=== PATIENT | male | born 1990 | race Caucasian/White ===

== ENCOUNTER 2018-02-02 16:35 | Emergency (ER) | payer OTHER ==
[~2018-02-02] VITALS: Ht 180.3 cm; Wt 99.8 kg
[~2018-02-02 16:35] MED LIST: ANTIBIOTIC; BACTRIM DS TAB1 EACH PO
[2018-02-02] MEDS ORDERED: VOLTAREN GEL 1100 G2 TOP (17:33)
[2018-02-02 17:39] VITALS: BP 125/75
--- NOTE | 2018-02-03 13:02 | EKG ---
[place] [address] ELECTROCARDIOGRAM REPORT Name: BRANDYN LOBO Room: [facility]#: [id number] Admission: 02/02/18 Attend Phys: Discharge: 02/02/18 Date of : 86 Report #: [id number] THIS REPORT FOR: //name// [facility] ED Test Date: 2018-02-02 Test Time: 16:42:29 Pat Name: BRANDYN LOBO Department: Room: Gender: M [employer] Machine Operator: EDDIE : 1990 Requested By: Kerline Dietz Order Number: [id number] MD: Eduardo Heredia Measurements Intervals Scott Rate: 68 P: 46 NJ: 142 QRS: 46 QRSD: 86 T: 41 QT: 360 QTc: 383 Interpretive Statements Sinus rhythm RSR' in V1 or V2, right VCD or RVH Baseline wander in lead(s) V3 No previous ECG available for comparison Electronically Signed On 02-03-2018 13:02:11 CDT by Eduardo Heredia [email or web address] <ELECTRONICALLY SIGNED> By: Eduardo Heredia MD, [facility] 02/03/18 130 41 41 Eduardo Heredia MD, [facility] /EPI
== END 2018-02-02 18:00 | disposition home or self-care (01) ==
LOC: M.ERS 16:35
DX: S20.212A Contusion of left front wall of thorax, initial encounter (principal); F41.9 Anxiety disorder, unspecified; J45.909 Unspecified asthma, uncomplicated; Z90.49 Acquired absence of other specified parts of digestive tract; X58.XXXA Exposure to other specified factors, initial encounter; Y93.89 Activity, other specified; Y92.89 Other specified places as the place of occurrence of the external cause; Y99.8 Other external cause status

== ENCOUNTER 2018-06-17 18:06 | Emergency (ER) | payer OTHER ==
[~2018-06-17] VITALS: Ht 180.3 cm; Wt 99.8 kg
[~2018-06-17 18:06] MED LIST changes: +VOLTAREN GEL 1100 G2 TOP
[2018-06-17] MEDS ORDERED: DOXYCYCLINE 10100 MG PO (18:37)
[2018-06-17] MEDS ORDERED: TESSALON PERLE100 M1 PO (18:38)
[2018-06-17] MEDS ORDERED: WELLBUTRIN SR150 MG PO (18:38)
[2018-06-17] MEDS ORDERED: MOBIC15 MG PO (18:39)
[2018-06-17] MEDS ORDERED: PREDNISONE 20 M20 MG PO (19:34)
[2018-06-17 19:47] VITALS: BP 132/78
== END 2018-06-17 19:47 | disposition home or self-care (01) ==
LOC: M.ERS 18:06
DX: R05 Cough (principal); R06.02 Shortness of breath; R42 Dizziness and giddiness; J45.909 Unspecified asthma, uncomplicated; Z90.49 Acquired absence of other specified parts of digestive tract

== ENCOUNTER 2019-09-20 17:00 | Emergency (ER) | payer OTHER ==
[~2019-09-20] VITALS: Ht 182.9 cm; Wt 86.2 kg
[~2019-09-20 17:00] MED LIST changes: +DOXYCYCLINE 10100 MG PO; +MOBIC15 MG PO; +PREDNISONE 20 M20 MG PO; +TESSALON PERLE100 M1 PO; +WELLBUTRIN SR150 MG PO
[2019-09-20] MEDS ORDERED: XARELTO10 M1 PO (17:14)
[2019-09-20] MEDS ORDERED: BENTYL 10 MG CA10 M1 PO (17:14)
[2019-09-20] MEDS ORDERED: OMEPRAZOLE40 MG PO (17:14)
[2019-09-20] MEDS ORDERED: CELEXA 20 MG TA20 MG PO (17:14)
[2019-09-20] MEDS ORDERED: BUTALB-APAP-CA1 EACH PO (17:48)
[2019-09-20 17:59] VITALS: BP 126/84
== END 2019-09-20 18:00 | disposition home or self-care (01) ==
LOC: M.ERS 17:00
DX: S00.03XA Contusion of scalp, initial encounter (principal); J45.909 Unspecified asthma, uncomplicated; Z90.49 Acquired absence of other specified parts of digestive tract; W20.8XXA Other cause of strike by thrown, projected or falling object, initial encounter; Y93.89 Activity, other specified; Y92.89 Other specified places as the place of occurrence of the external cause; Y99.8 Other external cause status